=== PATIENT | female | born 1990 | race Two or more races ===

== ENCOUNTER 2019-03-09 08:18 | Day surgery (SDC) | payer OTHER ==
[2019-03-09] VITALS (9 sets, daily range): BP systolic 98–121; BP diastolic 50–74
[~2019-03-09] VITALS: Ht 157.5 cm; Wt 50.8 kg
--- NOTE | 2019-03-09 06:55 | Anethesia Preoperative Eval ---
Anesthesia Pre-op PMH/ROS General Date of Evaluation: Mar 09, 2019 Time of Evaluation: 06:54 Anesthesiologist: justo ASA Score: ASA 2 Mallampati Score Class I : Soft palate, uvula, fauces, pillars visible Class II: Soft palate, uvula, fauces visible Class III: Soft palate, base of uvula visible Class IV: Only hard plate visible Mallampati Classification: Class II Surgeon: jonny Diagnosis: abdominal bloating, constipation, anemia Surgical Procedure: egd/colonoscopy Anesthesia History: none Social History: current smoker Family History: no anesthesia problems Allergies: Coded Allergies: No Known Allergies (Unverified , 03/09/19) Medications: see eMAR Patient NPO?: Yes Past Medical History Gastrointestinal/Genitourinary: Reports: other - constipation, abdominal bloating Anesthesia Pre-op Phys. Exam Physician Exam Last Vital Signs Date Time Temp Pulse Resp B/P (MAP) Pulse Ox O2 Delivery O2 Flow Rate FiO2 03/09/19 08:42 97.7 57 16 98/58 100 Room Air Constitutional: NAD Neurologic: CN 2-12 intact Cardiovascular: RRR Respiratory: CTA Gastrointestinal: S/NT/ND Airway Exam Mallampati Score: Class II MO: full Neck: flexible TMD: 2fb ROM: full Teeth: intact Anesthesia Pre-op A/P Labs Labs Test 03/09/19 08:20 Urine HCG, Qualitative Negative (NEGATIVE) Risk Assessment & Plan Assessment: asa2 Plan: mac Status Change Before Surgery: No Pre-Antibiotics Drug: Flower Lei MD Mar 09, 2019 06:55
[2019-03-09] MEDS ORDERED: NKM (08:40)
[2019-03-09] MEDS ORDERED: LR 1000ml 1,000 ML IVLG SCH (09:05)
[2019-03-09] MEDS ORDERED: Midazolam 2mg/2ml Inj IVP PRN (09:15)
[2019-03-09] MEDS ORDERED: fentaNYL 100 mcg/2 mL IV PRN (09:15)
[2019-03-09] MEDS ORDERED: DiphenhydrAMINE 50mg/ml Inj IVP PRN (09:15)
[2019-03-09] MEDS ORDERED: Atropine Inj 1mg/10ml Syr IV PRN (09:15)
[2019-03-09] MEDS ORDERED: LR 1000ml ONE (10:00)
[2019-03-09] MEDS ORDERED: Propofol 200mg/20ml IV ONE (10:00)
[2019-03-09] MEDS ORDERED: Lidocaine 1% MPF 10mg/ml 5ml ONE (10:00)
--- NOTE | 2019-03-09 10:31 | Short Stay Surgery H&P ---
History of Present Illness History of Present Illness Chief Complaint see H&P HPI Carito Norris is a 29 year old female who was admitted on for Bloating And Constipation And Anemia Patient History Allergies: Coded Allergies: No Known Allergies (Unverified , 03/09/19) Medication History Scheduled No Known Medications* (NKM - No Known Medications*), 0 ., (Reported) Physical Exam Vital Signs Last Vital Signs Date Time Temp Pulse Resp B/P (MAP) Pulse Ox O2 Delivery O2 Flow Rate FiO2 03/09/19 08:42 97.7 57 16 98/58 100 Room Air Labs Laboratory Tests Test 03/09/19 08:20 Urine HCG, Qualitative Negative (NEGATIVE) Plan Attestation Are the patient's medical conditions optimized for surgery? Magaly Martino MD Mar 09, 2019 10:31
--- NOTE | 2019-03-09 10:31 | Pre-Procedure Note/Attestation ---
Pre-Procedure Note/Attestation Complete Prior to Procedure Planned Procedure: not applicable Procedure Narrative: EGD/Colon Indications for Procedure Pre-Operative Diagnosis: BRB, diarrhea Attestation I attest that I discussed the nature of the procedure; its benefits; risks and complications; and alternatives (and the risks and benefits of such alternatives ), prior to the procedure, with the patient (or the patient's legal access representative). I attest that, if there was a reasonable possibility of needing a blood transfusion, the patient (or the patient's legal access representative) was given the [facility] standardized written summary, pursuant to the [employer]ong [employer]ion[employer] Blood Safety Act ([place] [facility] and Safety Code # 1645, as amended). I attest that I re-evaluated the patient just prior to the surgery and that there has been no change in the patient's H&P, except as documented below: Magaly Martino MD Mar 09, 2019 10:31
--- NOTE | 2019-03-09 11:43 | Immediate Post-Op Evaluation ---
Immediate Post-Op Evalulation Immediate Post-Op Evalulation Procedure: egd/colonoscopy/bx Date of Evaluation: Mar 09, 2019 Time of Evaluation: 11:35 IV Fluids: 400ml lr Blood Products: none Estimated Blood Loss: negligible Blood Pressure Systolic: 107 Blood Pressure Diastolic: 58 Pulse Rate: 60 Respiratory Rate: 18 O2 Sat by Pulse Oximetry: 100 Temperature (Fahrenheit): 98.3 Pain Score (1-10): 0 Nausea: No Vomiting: No Complications none Patient Status: awake, reacts, patent Hydration Status: adequate Drug: Flower Lei MD Mar 09, 2019 11:43
--- NOTE | 2019-03-09 11:43 | 48 Hour Post Anesthesia Eval ---
Post Anesthesia Evaluation Procedure: egd/colonoscopy/bx Date of Evaluation: Mar 09, 2019 Time of Evaluation: 11:37 Blood Pressure Systolic: 105 0: 74 Pulse Rate: 68 Respiratory Rate: 18 Temperature (Fahrenheit): 98.3 O2 Sat by Pulse Oximetry: 100 Airway: patent Nausea: No Vomiting: No Pain Intensity: 0 Hydration Status: adequate Cardiopulmonary Status: stable Mental Status/LOC: patient returned to baseline Post-Anesthesia Complications: none Follow-up care needed: N/A Flower Feliz MD Mar 09, 2019 11:43
--- NOTE | 2019-03-09 22:45 | Procedure Note ---
DATE OF PROCEDURE: 03/09/2019 PROCEDURE: Upper gastrointestinal endoscopy with biopsy as well as colonoscopy with biopsy. SURGEON: Magaly Martino M.D. ANESTHESIA: Please see the separate anesthesiologist notes for details. PRE-ENDOSCOPIC DIAGNOSES: 1. Anemia. 2. Hematochezia. PROCEDURE The procedure and its risks were explained and an informed consent obtained. The diagnostic endoscope was advanced via oropharynx into duodenum and mucosa were examined carefully. The colonoscope was then introduced into rectum and advance into terminal ileum for about 10 cm. Mucosa were examined carefully. Retroflex view of rectum showed patchy mild erythema of unclear significance. POST-ENDOSCOPIC DIAGNOSES: 1. Normal upper endoscopy status post random biopsy of the duodenum. 2. Slight erythema in the rectum of unclear significance status post biopsy. 3. Normal colonoscopy otherwise including 10 centimeters of the terminal ileum. RECOMMENDATIONS: 1. Follow up biopsy results. 2. Outpatient followup. 3. The patient to proceed with defecography as an outpatient. Magaly Martino M.D. DR: Avis JOB#: [id number] CC: HIL[place]
--- NOTE | 2019-03-10 22:45 | Endoscopy Procedure Note ---
Endoscopy Procedure Note General Operative Findings/Diagnosis: 1. Normal upper endoscopy status post random biopsy of the duodenum. Specimen: yes Pt Tolerated Procedure Well: Yes Estimated Blood Loss: none Anesthesia Anesthesiologist: luis a freitas Anesthesia: MAC Medications Medication Given: see anesthesia record Inserted Devices Implant(s) used?: No GI Core Measures 50 yrs or older w/o bx or poly: Not Applicable 10yrs. F/U recommended: Not Applicable Magaly Martino MD Mar 10, 2019 22:45
--- NOTE | 2019-03-10 22:47 | Brief Operative Note ---
Immediate Post Operative Note Operative Note Chief Complaint: anemia Pre-op Diagnosis: BRB, anemia Procedure: esophagogastroduodenoscopycolon Surgeon: jonny Specimen: yes Complications: none Fluids: griselda anesthesia Implant(s) used?: No Magaly Martino MD Mar 10, 2019 22:47
== END 2019-03-09 12:25 | disposition home or self-care (01) ==
LOC: GAS 08:18
DX: D64.9 Anemia, unspecified (principal); K92.1 Melena; K59.00 Constipation, unspecified; F17.200 Nicotine dependence, unspecified, uncomplicated
CPT/HCPCS: 43239; 45380; 81025; J2704; 94003; 94150